=== PATIENT | male | born 1965 | race Caucasian/White ===

== ENCOUNTER 2016-11-18 17:51 | Emergency (ER) | payer MEDICAID, OTHER ==
--- NOTE | 2016-11-18 18:05 | EDM.PDOC ---
ED HPI GENERAL MEDICAL PROBLEM - General Chief Complaint: Upper Extremity Injury/Pain Stated Complaint: LEFT HAND INJURY Time Seen by Provider: 11/18/16 18:00 Source of Information: Reports: Patient History Limitations: Reports: No Limitations - History of Present Illness INITIAL COMMENTS - FREE TEXT/NARRATIVE: 51 yjo male had a metallic drill bit explode on him at work this morning. Is here now for evaluation of the resulting left hand injury. Thinks he may have metal in his hand from the broken drill bit. Last tetanus was one year ago. 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 (see below) (Wound was rinsed at the time of injury.) Review of Systems - Review of Systems Review Of Systems: See Below Constitutional: Reports: No Symptoms Musculoskeletal: Reports: Hand Pain (L thenar emminence) Skin: Reports: Wound (puncture) Neurological: Reports: No Symptoms ED EXAM, GENERAL - Physical Exam Exam: See Below Exam Limited By: No Limitations General Appearance: Alert, WD/WN, No Apparent Distress Ears: Normal External Exam, Normal Canal, Hearing Grossly Normal Ear Exam: Bilateral Ear: Auricle Normal, Canal Normal Nose: Normal Inspection, Normal Mucosa, No Blood Throat/Mouth: Normal Lips, Normal Voice, No Airway Compromise Head: Atraumatic, Normocephalic Neck: Normal Inspection Respiratory/Chest: No Respiratory Distress, No Accessory Muscle Use Neurological: Alert, Oriented, CN II-XII Intact, Normal Cognition, No Motor/ Sensory Deficits Psychiatric: Normal Affect, Normal Mood Skin Exam: Warm, Dry, Normal Color, No Rash, Other (Puncture wound to the L thenar emminence. No sign of bleeding or infection at this time. ) Lymphatic: No Adenopathy Course - Vital Signs Text/Narrative:: L hand X-ray-2 metallic FB's present. cephalexin 1000 mg po, [place] 1 po - Orders/Labs/Meds Orders: Active Orders 24 hr Category Date Time Status Hand Comp Min 3V Lt [CR] Stat Exams 11/18/16 18:04 Taken Acetaminophen/HYDROcodone [[place] 325-5 MG] Med 11/18/16 18:10 Once 1 tab PO ONETIME ONE Cephalexin [Keflex] Med 11/18/16 18:09 Once 1,000 mg PO ONETIME ONE Departure - Departure Time of Disposition: 18:30 Disposition: Home, Self-Care 01 Condition: Good Clinical Impression: Puncture wound of hand Qualifiers: Encounter type: initial encounter Foreign body presence: with foreign body Laterality: left Qualified Code(s): S61.442A - Puncture wound with foreign body of left hand, initial encounter - Discharge Information Forms: ED Department Discharge - My Orders Last 24 Hours: My Active Orders 11/18/16 18:04 Hand Comp Min 3V Lt [CR] Stat 11/18/16 18:09 Cephalexin [Keflex] 1,000 mg PO ONETIME ONE 11/18/16 18:10 Acetaminophen/HYDROcodone [[place] 325-5 MG] 1 tab PO ONETIME ONE - Assessment/Plan Last 24 Hours: My Active Orders 11/18/16 18:04 Hand Comp Min 3V Lt [CR] Stat 11/18/16 18:09 Cephalexin [Keflex] 1,000 mg PO ONETIME ONE 11/18/16 18:10 Acetaminophen/HYDROcodone [[place] 325-5 MG] 1 tab PO ONETIME ONE
[2016-11-18] MEDS ORDERED: Cephalexin 500 MG Cap PO ONE ×2 (18:09→18:35)
[2016-11-18] MEDS ORDERED: Acetaminophen/HYDROcodone 325-5 MG Tab PO ONE ×2 (18:10→18:34)
[2016-11-18 19:11] VITALS: BP 189/97
--- NOTE | 2016-11-19 09:31 | CR ---
INDICATION: Injury. LEFT HAND, 3 VIEWS: FINDINGS: No comparison imaging. There is apparent radiopaque foreign body that projects along the volar surface of the hand. This projects basically between the 2nd and 4th metacarpal regions. There are a couple of radiopaque foreign bodies that are present. I do not see an associated fracture or dislocation. 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 There is some additional osteoarthritis that is associated with the thumb. IMPRESSION: There is radiopaque foreign body that is identified which appears to project over the volar aspect of the hand, basically in the region of the 2nd through 4th metacarpals. There are a couple of radiopaque densities that are identified. There is some associated soft tissue swelling. No associated fracture or dislocation. [facility]
== END 2016-11-18 18:50 | disposition home or self-care (01) ==
LOC: FB.ED 17:51
DX: S61.442A Puncture wound with foreign body of left hand, initial encounter (principal); W31.89XA Contact with other specified machinery, initial encounter; Y93.89 Activity, other specified; Y99.0 Civilian activity done for income or pay
CPT/HCPCS: 73130; 99283; A9270

== ENCOUNTER 2016-12-04 20:28 | Emergency (ER) | payer SELFPAY ==
[~2016-12-04 20:28] MED LIST: Lidocaine 1% 20 ML MDV INFILT ONE
[2016-12-04] MEDS ORDERED: cefTRIAXone 1,000 MG VIAL IM ONE (20:47)
--- NOTE | 2016-12-04 20:48 | EDM.PDOC ---
ED HPI GENERAL MEDICAL PROBLEM - General Stated Complaint: ARM HEAD LAC Time Seen by Provider: 12/04/16 20:28 Source of Information: Reports: Patient, EMS History Limitations: Reports: Intoxication - History of Present Illness INITIAL COMMENTS - FREE TEXT/NARRATIVE: 51 y.o. w m came to the ed after her was drinking and fell onto his beer bottle and injured his r forearm. No active bleed, no loss of function, no FB r forearm. Pt is currently unemployed. No N/V/D or any other acute medical issue , no family was present Onset: Today Onset Date: 12/17/16 Onset Time: 18:52 Duration: Hour(s):, Intermittent Location: Reports: Upper Extremity, Right Quality: Reports: Burning, Dull Severity: Moderate Improves with: Reports: None Worsens with: Reports: Movement Context: Reports: Trauma Associated Symptoms: Reports: No Other Symptoms - Related Data Allergies Allergy/AdvReac Type Severity Reaction Status Date / Time No Known Allergies Allergy Verified 12/04/16 21:11 Home Meds: Home Meds Cephalexin [Keflex] 500 mg PO Q6HR #40 capsule 12/04/16 [Rx] Past Medical History - Past Health History Medical/Surgical History: Denies Medical/Surgical History Social & Family History - Tobacco Use Smoking Status *Q: Current Every Day Smoker Years of Tobacco use: 30 Packs/Tins Daily: 0.5 - Caffeine Use Caffeine Use: Reports: Coffee - Recreational Drug Use Recreational Drug Use: No Review of Systems - Review of Systems Review Of Systems: Unable To Obtain ED EXAM, GENERAL - Physical Exam Exam: See Below Exam Limited By: Intoxication General Appearance: Alert, No Apparent Distress, Thin Eye Exam: Bilateral Eye: Normal Inspection Ears: Normal External Exam Ear Exam: Bilateral Ear: Auricle Normal Nose: Normal Inspection, Normal Mucosa, No Blood Throat/Mouth: Normal Inspection, Normal Lips Head: Atraumatic, Normocephalic Neck: Normal Inspection, Supple, Non-Tender, Full Range of Motion Respiratory/Chest: No Respiratory Distress, Lungs Clear, Normal Breath Sounds Cardiovascular: Normal Peripheral Pulses, Regular Rate, Rhythm, No Edema Peripheral Pulses: 1+: Radial (L), Radial (R) GI/Abdominal: Normal Bowel Sounds, Soft, Non-Tender (Male) Exam: No Hernia Rectal (Males) Exam: Deferred Back Exam: Normal Inspection, Full Range of Motion Extremities: Other (LAC right forearm) Neurological: Alert, Oriented (occ.), CN II-XII Intact, Normal Gait Psychiatric: Normal Affect, Depressed Mood Skin Exam: Warm, Other (r forearm) Lymphatic: No Adenopathy ED TRAUMA EXTREMITY PROCEDURES - Laceration/Wound Repair Right Medial Arm Lac/Wound Length In cm: 6 Appearance: Subcutaneous, Mildly Contaminated Distal NVT: Neuro & Vascular Intact, No Tendon Injury Anesthetic Type: Local Local Anesthesia - Lidocaine (Xylocaine): 1% Plain Local Anesthetic Volume: 4cc Skin Prep: Chlorhexidine (Hibiciens), Providone-Iodine (Betadine) Saline Irrigation (cc's): 10 Exploration/Debridement/Repair: Wound Explored, in a Bloodless Field, Explored to Base Suture Size: 4-0 # of Sutures: 6 (interupted ) Repaired With: Other (ethilon ) Drain Placement: No Sterile Dressing Applied: Nurse Tetanus Status Addressed: Yes (UTD 2 years ago) Complications: No Course - Vital Signs Text/Narrative:: 51 y.o. w m came to the ed after her was drinking and fell onto his beer bottle and injured his r forearm. No active bleed, no loss of function, no FB r forearm. Pt is currently unemployed. No N/V/D or any other acute medical issue , no family was present PE: intoxicated WM with non bleeding LAC r forearm. BP 95/75 Procedure: Please see note above Labs: HGB and HKT Nl Imaging: Not indicated Impression: etoh abuse, LAC r forearm Tx: Wound repair, NS, Rocephin, Thiamin Reexam: Improved Plan: D/C home with instruction, with family Last Recorded V/S: Last Vital Signs Temp 37.0 C 12/04/16 20:28 Pulse 116 H 12/04/16 20:28 Resp 18 12/04/16 20:28 BP 99/71 12/04/16 20:28 Pulse Ox 99 12/04/16 20:28 - Orders/Labs/Meds Orders: Active Orders 24 hr Category Date Time Status Sodium Chloride 0.9% [Normal Saline] 1,000 ml Med 12/04/16 21:21 Active IV .BOLUS Medication Orders Sodium Chloride (Normal Saline) 1,000 mls @ 999 mls/hr IV .BOLUS ONE Stop: 12/04/16 22:21 Last Admin: 12/04/16 21:35 Dose: 999 mls/hr Labs: Laboratory Tests 12/04/16 12/04/16 Range/Units 21:25 21:25 WBC 9.5 (4.5-12.0) X10-3/uL RBC 4.62 (4.30-5.75) x10(6)uL Hgb 14.9 (11.5-15.5) g/dL Hct 44.5 (30.0-51.3) % MCV 96.3 H (80-96) fL MCH 32.2 (27.7-33.6) pg MCHC 33.5 (32.2-35.4) g/dL RDW 13.7 (11.5-15.5) % Plt Count 255 (125-369) X10(3)uL MPV 7.4 (7.4-10.4) fL Neut % (Auto) 72.1 (46-82) % Lymph % (Auto) 16.3 (13-37) % [place] % (Auto) 8.6 (4-12) % Eos % (Auto) 2 (1.0-5.0) % Baso % (Auto) 1 (0-2) % Neut # (Auto) 6.8 (1.6-8.3) # Lymph # (Auto) 1.6 (0.6-5.0) # [place] # (Auto) 0.8 (0.0-1.3) # Eos # (Auto) 0.2 (0.0-0.8) # Baso # (Auto) 0.1 (0.0-0.2) # Sodium 137 (135-145) mmol/L Potassium 4.2 (3.5-5.3) mmol/L Chloride 106 (100-110) mmol/L Carbon Dioxide 21 L (23-29) mmol/L BUN 25 H (5-20) mg/dL Creatinine 1.1 (0.6-1.3) mg/dL Est Cr Clr Drug Dosing 92.78 mL/min Estimated GFR (MDRD) > 60 (>60) BUN/Creatinine Ratio 22.7 H (9-20) Glucose 116 (80-116) mg/dL Calcium 8.6 (8.6-10.2) mg/dL Meds: Medications Generic Name Dose Route Start Last Admin Trade Name Freq PRN Reason Stop Dose Admin Sodium Chloride 1,000 mls @ 999 mls/hr 12/04/16 21:21 12/04/16 21:35 Normal Saline IV 12/04/16 22:21 999 mls/hr .BOLUS ONE Administration Discontinued Medications Generic Name Dose Route Start Last Admin Trade Name Mathieu PRN Reason Stop Dose Admin Ceftriaxone Sodium 1,000 mg 12/04/16 20:47 12/04/16 21:34 Rocephin IM 12/04/16 20:48 1,000 mg ONETIME ONE Administration Thiamine HCl 100 mg 12/04/16 21:20 12/04/16 21:35 Vitamin B-1 PO 12/04/16 21:21 100 mg ONETIME ONE Administration Departure - Departure Time of Disposition: 21:53 Disposition: Home, Self-Care 01 Condition: Good Clinical Impression: ETOH abuse, Laceration, Poor hygiene - Discharge Information Prescriptions: Cephalexin [Keflex] 500 mg PO Q6HR #40 capsule Instructions: Sutured Wound Care, [id number] Referrals: PCP,None [Primary Care Provider] - Forms: ED Department Discharge Additional Instructions: Wound check in 2-3 days at clinic, neosporine to wound twice daily, Keflex as recommended, suture removal in 10 days at clinic, please come back to the ER if your symptoms get worse acutely. - My Orders Last 24 Hours: My Active Orders 12/04/16 21:21 Sodium Chloride 0.9% [Normal Saline] 1,000 ml IV .BOLUS - Assessment/Plan Last 24 Hours: My Active Orders 12/04/16 21:21 Sodium Chloride 0.9% [Normal Saline] 1,000 ml IV .BOLUS
[2016-12-04] MEDS ORDERED: Thiamine 100 MG Tab PO ONE (21:20)
[2016-12-04] MEDS ORDERED: Sodium Chloride 0.9% 1,000 ML IV ONE (21:21)
[2016-12-05 03:36] VITALS: BP 112/64
== END 2016-12-04 22:30 | disposition home or self-care (01) ==
LOC: FB.ED 20:28
DX: S51.811A Laceration without foreign body of right forearm, initial encounter (principal); F10.10 Alcohol abuse, uncomplicated; F17.210 Nicotine dependence, cigarettes, uncomplicated; W01.198A Fall on same level from slipping, tripping and stumbling with subsequent striking against other object, initial encounter
CPT/HCPCS: 12002; 36415; 80048; 85025; 96360; 96372; 99284; A4217; A9270; J0696; J7040; 99283

== ENCOUNTER 2018-08-23 10:15 | Emergency (ER) | payer MEDICAID ==
[2018-08-23] MEDS ORDERED: Albuterol/Ipratropium 3.0-0.5 MG/3 ML Neb Soln NEB ONE (10:28)
--- NOTE | 2018-08-23 10:34 | EDM.PDOC ---
ED HPI GENERAL MEDICAL PROBLEM - General Chief Complaint: Respiratory Problem Stated Complaint: SOB Time Seen by Provider: 08/23/18 10:28 Source of Information: Reports: Patient History Limitations: Reports: No Limitations - History of Present Illness INITIAL COMMENTS - FREE TEXT/NARRATIVE: Presents with productive cough and SOB x 1 week. Complains of chest tightness. History of Asthma. Denies Fevers. No h/o CAD. Duration: Week(s): (1) - Related Data Allergies Allergy/AdvReac Type Severity Reaction Status Date / Time No Known Allergies Allergy Verified 08/23/18 11:26 Home Meds: Home Meds Albuterol [Proventil HFA] 2 puff INH Q4H PRN #1 inhaler 08/23/18 [Rx] Doxycycline Hyclate 100 mg PO BID #20 capsule 08/23/18 [Rx] Losartan Potassium [Cozaar] 50 mg PO DAILY #30 tablet 08/23/18 [Rx] Past Medical History - Past Health History Medical/Surgical History: Denies Medical/Surgical History Cardiovascular History: Reports: Hypertension. Denies: CAD Psychiatric History: Reports: Addiction, Psych Hospitalization(s) Other Psychiatric History: ETOH abuse, has been in tx x 7. - Infectious Disease History Infectious Disease History: Reports: Mumps - Past Surgical History GI Surgical History: Reports: Hernia Repair/Other Social & Family History - Family History Family Medical History: Noncontributory - Tobacco Use Smoking Status *Q: Current Every Day Smoker Tobacco Use Within Last Twelve Months: Cigarettes - Caffeine Use Caffeine Use: Reports: Coffee ED ROS GENERAL - Review of Systems Review Of Systems: ROS reveals no pertinent complaints other than HPI. ED EXAM, GENERAL - Physical Exam Exam: See Below Exam Limited By: No Limitations General Appearance: Alert, WD/WN, No Apparent Distress Nose: Normal Inspection Throat/Mouth: Normal Inspection, No Airway Compromise Head: Atraumatic, Normocephalic Neck: Full Range of Motion Respiratory/Chest: No Respiratory Distress, Decreased Breath Sounds, Wheezing Cardiovascular: Regular Rate, Rhythm, No Murmur Back Exam: Full Range of Motion Extremities: Normal Inspection, Normal Range of Motion, Non-Tender, No Pedal Edema Neurological: Alert, Normal Cognition, No Motor/Sensory Deficits Psychiatric: Normal Affect, Normal Mood Skin Exam: Warm, Dry, Intact EKG INTERPRETATION EKG Date: 08/23/18 Time: 11:06 Rhythm: NSR Rate (Beats/Min): 82 [place]: Normal P-Wave: Present QRS: Other (LVH) ST-T: Normal QT: Normal Course - Orders/Labs/Meds Orders: Active Orders 24 hr Category Date Time Status EKG Documentation Completion [RC] ASDIRECTED Care 08/23/18 10:30 Active RT Aerosol Therapy [RC] ASDIRECTED Care 08/23/18 10:28 Active CXR [Chest 2V] [CR] Stat Exams 08/23/18 10:30 Taken EKG 12 Lead [EK] Stat Ther 08/23/18 10:30 Ordered Labs: Laboratory Tests 08/23/18 08/23/18 08/23/18 Range/Units 10:17 10:17 10:17 WBC 6.6 (4.5-12.0) X10-3/uL RBC 4.67 (4.30-5.75) x10(6)uL Hgb 15.5 (13.5-17.8) g/dL Hct 44.9 (30.0-51.3) % MCV 96.3 H (80-96) fL MCH 33.2 (27.7-33.6) pg MCHC 34.4 (32.2-35.4) g/dL RDW 12.6 (11.5-15.5) % Plt Count 238 (125-369) X10(3)uL MPV 7.6 (7.4-10.4) fL Neut % (Auto) 75.8 (46-82) % Lymph % (Auto) 13.5 (13-37) % [place] % (Auto) 8.6 (4-12) % Eos % (Auto) 1 (1.0-5.0) % Baso % (Auto) 1 (0-2) % Neut # (Auto) 4.9 (1.6-8.3) # Lymph # (Auto) 0.9 (0.6-5.0) # [place] # (Auto) 0.6 (0.0-1.3) # Eos # (Auto) 0.1 (0.0-0.8) # Baso # (Auto) 0.1 (0.0-0.2) # Sodium 141 (135-145) mmol/L Potassium 4.7 (3.5-5.3) mmol/L Chloride 102 (100-110) mmol/L Carbon Dioxide 30 (21-32) mmol/L BUN 20 H (7-18) mg/dL Creatinine 1.0 (0.70-1.30) mg/dL Est Cr Clr Drug Dosing TNP Estimated GFR (MDRD) > 60 (>60) BUN/Creatinine Ratio 20.0 (9-20) Glucose 94 (80-116) mg/dL Calcium 8.6 (8.6-10.2) mg/dL Total Bilirubin 0.5 (0.1-1.3) mg/dL AST 29 H (5-25) IU/L ALT 43 H (12-36) U/L Alkaline Phosphatase 39 L (56-112) IU/L Troponin I < 0.017 L (<0.017-0.056) ng/mL Total Protein 7.3 (6.0-8.0) g/dL Albumin 4.1 (3.5-5.2) g/dL Globulin 3.2 g/dL Albumin/Globulin Ratio 1.3 Meds: Medications Discontinued Medications Generic Name Dose Route Start Last Admin Trade Name Freq PRN Reason Stop Dose Admin Albuterol/Ipratropium 3 ml 08/23/18 10:28 08/23/18 10:51 Duoneb 3.0-0.5 Mg/3 Ml NEB 08/23/18 10:29 3 ml ONETIME ONE Administration - Radiology Interpretation Free Text/Narrative:: CXR: No acute process. (ED provider interpretation) - Re-Assessments/Exams Free Text/Narrative Re-Assessment/Exam: 08/23/18 11:23 Patient feels much improved after DuoNeb, lungs clear, good aeration. Departure - Departure Time of Disposition: 11:23 Disposition: Home, Self-Care 01 Condition: Good Clinical Impression: Bronchitis Asthma exacerbation Qualifiers: Asthma severity: moderate Asthma persistence: unspecified Qualified Code(s): J45.901 - Unspecified asthma with (acute) exacerbation Hypertension Qualifiers: Hypertension type: essential hypertension Qualified Code(s): I10 - Essential ( primary) hypertension - Discharge Information *PRESCRIPTION DRUG MONITORING PROGRAM REVIEWED*: No *COPY OF PRESCRIPTION DRUG MONITORING REPORT IN PATIENT MEL: Not Applicable Prescriptions: Albuterol [Proventil HFA] 2 puff INH Q4H PRN #1 inhaler PRN Reason: Wheezing Doxycycline Hyclate 100 mg PO BID #20 capsule Losartan Potassium [Cozaar] 50 mg PO DAILY #30 tablet Instructions: Asthma, Adult, How to Use a Metered Dose Inhaler, Hypertension, [id number], Acute Bronchitis, Adult, [id number] Referrals: Ebony Guzman ACCESS DEVELOPER [Nurse Practitioner] - 2 Days Forms: ED Department Discharge Additional Instructions: Fill prescriptions for Albuterol, Doxycycline and Cozaar at [facility] and take as directed. Follow up with your primary physician in 2 days. Return to the ER if symptoms worsen. - My Orders Last 24 Hours: My Active Orders 08/23/18 10:28 RT Aerosol Therapy [RC] ASDIRECTED 08/23/18 10:30 EKG Documentation Completion [RC] ASDIRECTED CXR [Chest 2V] [CR] Stat EKG 12 Lead [EK] Stat - Assessment/Plan Last 24 Hours: My Active Orders 08/23/18 10:28 RT Aerosol Therapy [RC] ASDIRECTED 08/23/18 10:30 EKG Documentation Completion [RC] ASDIRECTED CXR [Chest 2V] [CR] Stat EKG 12 Lead [EK] Stat
--- NOTE | 2018-08-23 13:48 | CR ---
INDICATION: Short of breath. CHEST: Two PA views and a lateral view of the chest were obtained 08/23/18 - no comparisons. Slightly flattened diaphragm leaves with prominent AP diameter and hyperaeration suggest COPD and should be correlated clinically. An active infiltrate or effusion was not identified. The heart is normal in size and shape. Mediastinum was unremarkable. Moderate hypertrophic degenerative changes are noted in the lower middle thoracic spine. Likely old mild compression fractures are noted at two upper middle thoracic levels. IMPRESSION: No acute process - probable COPD. MTDD
[2018-08-23 21:31] VITALS: BP 167/98
== END 2018-08-23 12:00 | disposition home or self-care (01) ==
LOC: FB.ED 10:15
DX: J45.901 Unspecified asthma with (acute) exacerbation (principal); I10 Essential (primary) hypertension; F17.210 Nicotine dependence, cigarettes, uncomplicated; Z79.899 Other long term (current) drug therapy
CPT/HCPCS: 36415; 71046; 80053; 84484; 85025; 93005; 94640; 99285-25; J7620-GY

== ENCOUNTER 2021-05-01 09:32 | Observation (INO) | payer MEDICAID ==
--- NOTE | 2021-05-01 10:06 | EDM.PDOC ---
ED HPI GENERAL MEDICAL PROBLEM - General Chief Complaint: Abdominal Pain Stated Complaint: CONFUSION Time Seen by Provider: 05/01/21 09:58 Source of Information: Reports: Patient History Limitations: Reports: No Limitations - History of Present Illness INITIAL COMMENTS - FREE TEXT/NARRATIVE: 56-year-old male who presents to the emergency department after being sent here from the walk-in clinic complaining of right upper quadrant and right chest pain that has been ongoing for the past year. He reports that today the pain was worse. He reports that it feels like a cramping and spasm-type pain. It does not radiate. It doesn't really seem to be made better or worse with anything that he does. He reports the pain as an 8/10. He has had no nausea or vomiting. He was able to eat and drink normally today. No fevers or chills. No cough. No shortness of breath. The patient does seem very shaky and he does admit to alcohol use that is very evasive about answering any questions related to this. He is a relatively poor historian. He has dropped off here at [facility], [place] by his boss. The patient reports that he does not drive and apparently he was brought here by his boss from his work because the patient was complaining of worsening pain. There are no other associated signs or symptoms. There are no other modifying factors. Onset: Other (Ongoing pain for the past year. 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 (see below) (Nothing.) Right Lower Abdomen Pain Score (Numeric/FACES): 8 - Related Data Allergies Allergy/AdvReac Type Severity Reaction Status Date / Time No Known Allergies Allergy Verified 05/01/21 09:47 Home Meds: Home Meds Albuterol Sulfate [Proair Hfa] 8.5 gm IH Q4HR PRN 05/01/21 [History] Budesonide/Formoterol [Symbicort 160-4.5 MCG] 2 puff INH BID 05/01/21 [History] Gabapentin [Neurontin] 300 mg PO TID 05/01/21 [History] LORazepam [Ativan] 1 mg PO ASDIRECTED #11 tab 05/01/21 [Rx] Losartan/Hydrochlorothiazide [Losartan-HCTZ 100-25 MG] 1 each PO DAILY 05/01/21 [History] Magnesium Oxide 400 mg PO BID #5 tablet 05/01/21 [Rx] Metoprolol Succinate 50 mg PO DAILY 05/01/21 [History] Montelukast [Singulair] 10 mg PO BEDTIME 05/01/21 [History] Pantoprazole 40 mg PO BEDTIME 05/01/21 [History] atorvaSTATin [Lipitor] 20 mg PO BEDTIME 05/01/21 [History] Past Medical History Cardiovascular History: Reports: Hypertension Psychiatric History: Reports: Addiction, Psych Hospitalization(s) Other Psychiatric History: ETOH abuse, has been in tx x 7. 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 Denies: Throat Pain Respiratory: Denies: Shortness of Breath, Cough Cardiovascular: Reports: Chest Pain (Right lower chest pain and abdominal pain.). Denies: Palpitations GI/Abdominal: Reports: Abdominal Pain (Right upper quadrant abdominal pain). Denies: Nausea, Vomiting : Denies: Dysuria, Hematuria Musculoskeletal: Denies: Neck Pain, Back Pain Skin: Denies: Diaphoresis, Rash Neurological: Denies: Confusion, Dizziness Psychiatric: Reports: Anxiety Hematologic/Lymphatic: Denies: Easy Bleeding, Easy Bruising ED EXAM, GI/ABD - Physical Exam Exam: See Below Exam Limited By: No Limitations General Appearance: Alert, WD/WN, Moderate Distress, Other (Appears quite tremulous) Eyes: Bilateral: Normal Appearance, EOMI Ears: Normal External Exam, Hearing Grossly Normal Nose: Normal Inspection, Normal Mucosa, No Blood Throat/Mouth: Normal Oropharynx, Normal Voice, No Airway Compromise Head: Atraumatic, Normocephalic Neck: Normal Inspection, Supple, Non-Tender, Full Range of Motion, Carotid Bruit Respiratory/Chest: No Respiratory Distress, Lungs Clear, Normal Breath Sounds Cardiovascular: Normal Peripheral Pulses, No Edema, No Murmur, Tachycardia (Slight tachycardia) GI/Abdominal Exam: Normal Bowel Sounds, Soft, Non-Tender, No Distention, Hepatomegaly Back Exam: Normal Inspection, Full Range of Motion Extremities: Normal Inspection, Normal Range of Motion, Non-Tender, No Pedal Edema, Normal Capillary Refill Neurological: Alert, Oriented, CN II-XII Intact, Normal Cognition, No Neo r/Sensory Deficits Psychiatric: Anxious Skin Exam: Warm, Dry, Intact, Normal Color, No Rash #1 Interpretation EKG Date: 05/01/21 Time: 10:23 Rhythm: NSR Rate (Beats/Min): 103 [place]: Normal P-Wave: Enlarged (SH or enlargement) QRS: Other (LVH) ST-T: Other (Abnormal R-wave progression) QT: Normal Comparison: No Change (No change from an EKG performed on 08/23/2018.) Course - Vital Signs Last Recorded V/S: Last Vital Signs Temp 37.1 C 05/01/21 16:17 Pulse 112 H 05/01/21 16:17 Resp 21 H 05/01/21 16:17 BP 185/113 H 05/01/21 16:17 Pulse Ox 95 05/01/21 16:17 - Orders/Labs/Meds Orders: Active Orders 24 hr Category Date Time Status Abdomen Pelvis w Cont [CT] Stat Exams 05/01/21 11:07 Taken Chest 1V Frontal [CR] Stat Exams 05/01/21 10:18 Taken CORONAVIRUS COVID-19 KULWANT [MOLEC] Stat Lab 05/01/21 16:57 Ordered LORazepam [Ativan] Med 05/01/21 17:11 Once 1 mg IVPUSH ONETIME ONE Multivitamins [Tab-A-Clement] Med 05/02/21 16:20 Once 1 tab PO ONETIME ONE Sodium Chloride 0.9% [Saline Flush] Med 05/01/21 10:18 Active 10 ml FLUSH ASDIRECTED PRN Peripheral IV Insertion Adult [OM.PC] Routine Oth 05/01/21 10:18 Ordered EKG 12 Lead [EK] Routine Ther 05/01/21 10:18 Ordered Medication Orders Lorazepam (Lorazepam 2 Mg/Ml Sdv) 1 mg IVPUSH ONETIME ONE Stop: 05/01/21 17:12 Multivitamins/Minerals/Vitamin C (Multivitamin Tab) 1 tab PO ONETIME ONE Stop: 05/02/21 16:21 Sodium Chloride (Sodium Chloride 0.9% 10 Ml Syringe) 10 ml FLUSH ASDIRECTED PRN PRN Reason: Keep Vein Open Last Admin: 05/01/21 10:26 Dose: 10 ml Documented by: SALO Labs: Laboratory Tests 05/01/21 05/01/21 05/01/21 Range/Units 10:35 10:35 10:35 WBC 7.1 (3.2-10.1) x10-3/uL RBC 4.16 (3.90-5.90) x10(6)uL Hgb 13.8 (12.9-17.7) g/dL Hct 41.6 (38.3-50.1) % MCV 100.0 H (80.8-98.7) fL MCH 33.3 (27.0-33.3) pg MCHC 33.3 (28.7-35.3) g/dL RDW 14.1 (12.4-15.0) % Plt Count 214 (117-477) x10(3)uL MPV 7.2 (6.7-11.0) fL Neut % (Auto) 75.4 H (40.3-71.8) % Lymph % (Auto) 11.9 L (15.8-45.3) % [place] % (Auto) 11.3 (5.5-15.2) % Eos % (Auto) 0.6 (0.1-6.8) % Baso % (Auto) 0.8 (0.3-3.8) % Neut # (Auto) 5.4 (1.7-6.9) x10-3/uL Lymph # (Auto) 0.8 (0.5-4.5) x10-3/uL [place] # (Auto) 0.8 (0.0-1.2) x10-3/uL Eos # (Auto) 0.0 (0.0-0.6) x10-3/uL Baso # (Auto) 0.1 (0.0-0.3) x10-3/uL D-Dimer, Quantitative 0.48 (0.0-0.59) mg/LFEU Sodium 139 (135-145) mmol/L Potassium 4.4 (3.5-5.3) mmol/L Chloride 100 (100-110) mmol/L Carbon Dioxide 23 (21-32) mmol/L BUN 24 H (7-18) mg/dL Creatinine 1.0 (0.70-1.30) mg/dL Est Cr Clr Drug Dosing 96.39 mL/min Estimated GFR (MDRD) > 60 (>60) BUN/Creatinine Ratio 24.0 H (9-20) Glucose 81 (80-116) mg/dL Calcium 8.6 (8.6-10.2) mg/dL Magnesium 1.5 L (1.8-2.5) mg/dL Total Bilirubin 0.5 (0.1-1.3) mg/dL AST 155 H* D (5-25) IU/L ALT 147 H D (12-36) U/L Alkaline Phosphatase 52 L (56-112) IU/L Troponin I (4.0-60.3) pg/mL C-Reactive Protein (0.5-0.9) mg/dL Total Protein 7.9 (6.0-8.0) g/dL Albumin 4.3 (3.5-5.2) g/dL Globulin 3.6 g/dL Albumin/Globulin Ratio 1.2 Lipase (73-393) U/L Urine Color (YELLOW) Urine Appearance (CLEAR) Urine pH (5.0-6.5) Ur Specific [place] (1.010-1.025) Urine Protein (NEGATIVE) mg/dL Urine Glucose (UA) (NORMAL) mg/dL Urine Ketones (NEGATIVE) mg/dL Urine Occult Blood (NEGATIVE) Urine Nitrite (NEGATIVE) Urine Bilirubin (NEGATIVE) Urine Urobilinogen (NEGATIVE) mg/dL Ur Leukocyte Esterase (NEGATIVE) Urine RBC (0-5) Urine WBC (0-5) Ur Squamous Epith Cells (NS,R,O) Urine Bacteria (NS) Ethyl Alcohol (<0.03) % 05/01/21 05/01/21 Range/Units 10:35 11:40 WBC (3.2-10.1) x10-3/uL RBC (3.90-5.90) x10(6)uL Hgb (12.9-17.7) g/dL Hct (38.3-50.1) % MCV (80.8-98.7) fL MCH (27.0-33.3) pg MCHC (28.7-35.3) g/dL RDW (12.4-15.0) % Plt Count (117-477) x10(3)uL MPV (6.7-11.0) fL Neut % (Auto) (40.3-71.8) % Lymph % (Auto) (15.8-45.3) % [place] % (Auto) (5.5-15.2) % Eos % (Auto) (0.1-6.8) % Baso % (Auto) (0.3-3.8) % Neut # (Auto) (1.7-6.9) x10-3/uL Lymph # (Auto) (0.5-4.5) x10-3/uL [place] # (Auto) (0.0-1.2) x10-3/uL Eos # (Auto) (0.0-0.6) x10-3/uL Baso # (Auto) (0.0-0.3) x10-3/uL D-Dimer, Quantitative (0.0-0.59) mg/LFEU Sodium (135-145) mmol/L Potassium (3.5-5.3) mmol/L Chloride (100-110) mmol/L Carbon Dioxide (21-32) mmol/L BUN (7-18) mg/dL Creatinine (0.70-1.30) mg/dL Est Cr Clr Drug Dosing mL/min Estimated GFR (MDRD) (>60) BUN/Creatinine Ratio (9-20) Glucose (80-116) mg/dL Calcium (8.6-10.2) mg/dL Magnesium (1.8-2.5) mg/dL Total Bilirubin (0.1-1.3) mg/dL AST (5-25) IU/L ALT (12-36) U/L Alkaline Phosphatase (56-112) IU/L Troponin I 13.1 (4.0-60.3) pg/mL C-Reactive Protein < 0.2 L (0.5-0.9) mg/dL Total Protein (6.0-8.0) g/dL Albumin (3.5-5.2) g/dL Globulin g/dL Albumin/Globulin Ratio Lipase 231 (73-393) U/L Urine Color Yellow (YELLOW) Urine Appearance Clear (CLEAR) Urine pH 6.0 (5.0-6.5) Ur Specific [place] 1.025 (1.010-1.025) Urine Protein Negative (NEGATIVE) mg/dL Urine Glucose (UA) Normal (NORMAL) mg/dL Urine Ketones Negative (NEGATIVE) mg/dL Urine Occult Blood Negative (NEGATIVE) Urine Nitrite Negative (NEGATIVE) Urine Bilirubin Negative (NEGATIVE) Urine Urobilinogen Normal (NEGATIVE) mg/dL Ur Leukocyte Esterase Negative (NEGATIVE) Urine RBC 0-5 (0-5) Urine WBC 0-5 (0-5) Ur Squamous Epith Cells Rare (NS,R,O) Urine Bacteria Occasional H (NS) Ethyl Alcohol 0.07 H (<0.03) % Meds: Medications Generic Name Dose Route Start Last Admin Trade Name Freq PRN Reason Stop Dose Admin Lorazepam 1 mg 05/01/21 17:11 Lorazepam 2 Mg/Ml Sdv IVPUSH 05/01/21 17:12 ONETIME ONE Multivitamins/Minerals/Vitamin C 1 tab 05/02/21 16:20 Multivitamin Tab PO 05/02/21 16:21 ONETIME ONE Sodium Chloride 10 ml 05/01/21 10:18 05/01/21 10:26 Sodium Chloride 0.9% 10 Ml Syringe FLUSH 10 ml ASDIRECTED PRN Administration Keep Vein Open Discontinued Medications Generic Name Dose Route Start Last Admin Trade Name Freq PRN Reason Stop Dose Admin Sodium Chloride 1,000 mls @ 999 mls/hr 05/01/21 10:20 05/01/21 10:35 Normal Saline IV 05/01/21 11:20 999 mls/hr .BOLUS ONE Administration Magnesium Sulfate 2 gm/ Premix 50 mls @ 50 mls/hr 05/01/21 11:06 IV 05/01/21 12:05 ONETIME ONE Iopamidol 100 ml 05/01/21 11:57 12/01/21 12:06 Iopamidol 755 Mg/Ml 100 Ml Bottle IV 05/01/21 11:58 100 ml . DIRECTED ONE Administration Lorazepam 1 mg 05/01/21 11:06 05/01/21 11:48 Lorazepam 2 Mg/Ml Sdv IVPUSH 05/01/21 11:07 1 mg ONETIME ONE Administration Lorazepam 1 mg 05/01/21 16:18 05/01/21 16:23 Lorazepam 1 Mg Tab PO 05/01/21 16:19 1 mg ONETIME ONE Administration Magnesium Oxide 800 mg 05/01/21 16:19 05/01/21 16:24 Magnesium Oxide 400 Mg Tab PO 05/01/21 16:20 800 mg ONETIME ONE Administration - Radiology Interpretation Free Text/Narrative:: Chest x-ray showed scattered nodules. CT scan of the abdomen and pelvis showed hepatomegaly with diffuse fatty liver infiltration that was severe. So diffuse tree in but nodularity of the bilateral lower lobes of the lungs. This was per the [place] radiologist. - Re-Assessments/Exams Free Text/Narrative Re-Assessment/Exam: 05/01/21 11:15: White blood cell count is 7.1. Hemoglobin is 13.8. Platelet count is normal. Sodium is 139. Potassium is 4.4. Bicarbonate is 23. BUN is 24 and creatinine is 1.0. Magnesium is 1.5. D-dimer is normal. Glucose is 81. AST is 155. ALT is 147. Lipase is normal. CRP was negative. A troponin was normal. An EKG showed no change from previous EKG. Alcohol level was 70 mg/dL. Patient remains awake and alert. He is tremulous and is pulse 110 range. His blood pressure is also elevated. I will give the patient Ativan 1 mg IV. I will also order a CT scan of his abdomen and pelvis with IV contrast to further assess his abdominal pain. 05/01/21 12:10: Urinalysis was negative. The patient is awake and alert. He is still somewhat tachycardic. I am awaiting the CT scan of the abdomen and pelvis. The patient is receiving normal saline 1 L as a bolus IV. He will also be receiving magnesium 2 g IV. 05/01/21 16:00: The CT scan of the abdomen and pelvis showed hepatomegaly and fatty liver with some nodularity in his lung bases bilaterally. He is awake and alert. He remains somewhat tremulous. I will have the nursing staff repeat his vital signs. I did have a discussion with the patient about alcohol abuse and the effects of alcohol on him and his need to stop drinking alcohol. I am somewhat concerned about his level of tremulousness. He is awake and alert and is mentating normally. He really is having no hallucinations now. He was having some mild hallucinations this morning and felt very dizzy and weak prior to coming in. He does feel somewhat improved now. 05/01/21 16:20: The patient's repeat pulse was 112 and his blood pressure is 118/113. He certainly seems to be having some alcohol withdrawal but not any hallucinosis yet. I think she would benefit from admission with IV fluids and treatment of his alcohol withdrawal but he was resistant to this and wanted to try to go home. I will give him a tapering dose of Ativan but I have stressed to him that he should not drink anymore alcohol and take the Ativan. 05/01/21 16:30: Patient has reconsidered and would agree to admission. I will call and discuss this with the nursing dried yeast supervisor to see if a bed is available. In the meantime I have are given the patient magnesium oxide 800 mg orally, one multivitamin and Ativan 1 mg by mouth. 05/01/21 16:55: I have been informed that we do have a bed available and I discussed the patient's case with Dr. Proctor and he has agreed to admit the patient. I will place the patient on observation status and will place admission orders. Departure - Departure Time of Disposition: 17:14 Disposition: Refer to Observation Condition: Fair Clinical Impression: Alcohol abuse, Hypomagnesemia, Hypertension, uncontrolled Alcoholic hepatitis Qualifiers: Ascites presence: without ascites Qualified Code(s): K70.10 - Alcoholic hepatitis without ascites Alcohol withdrawal Qualifiers: Complication of substance-induced condition: with perceptual disturbance Qualified Code(s): F10.232 - Alcohol dependence with withdrawal with perceptual disturbance - Discharge Information Prescriptions: LORazepam [Ativan] 1 mg PO ASDIRECTED #11 tab Magnesium Oxide 400 mg PO BID #5 tablet Referrals: Ebony Guzman, COUNTER WAITRESS/WAITER [Primary Care Provider] - Forms: ED Department Discharge Sepsis Event Note (ED) - Evaluation Sepsis Screening Result: No Definite Risk - Focused Exam Vital Signs: Vital Signs Temp Pulse Resp BP Pulse Ox 05/01/21 16:17 37.1 C 112 H 21 H 185/113 H 95 05/01/21 13:46 36.9 C 116 H 20 164/105 H 95 05/01/21 09:48 37.0 C 110 H 18 149/97 H 95 - My Orders Last 24 Hours: My Active Orders 05/01/21 10:18 Chest 1V Frontal [CR] Stat Sodium Chloride 0.9% [Saline Flush] 10 ml FLUSH ASDIRECTED PRN Peripheral IV Insertion Adult [OM.PC] Routine EKG 12 Lead [EK] Routine 05/01/21 11:07 Abdomen Pelvis w Cont [CT] Stat 05/01/21 16:57 CORONAVIRUS COVID-19 KULWANT [MOLEC] Stat 05/01/21 17:11 LORazepam [Ativan] 1 mg IVPUSH ONETIME ONE 05/02/21 16:20 Multivitamins [Tab-A-Clement] 1 tab PO ONETIME ONE - Assessment/Plan Last 24 Hours: My Active Orders 05/01/21 10:18 Chest 1V Frontal [CR] Stat Sodium Chloride 0.9% [Saline Flush] 10 ml FLUSH ASDIRECTED PRN Peripheral IV Insertion Adult [OM.PC] Routine EKG 12 Lead [EK] Routine 05/01/21 11:07 Abdomen Pelvis w Cont [CT] Stat 05/01/21 16:57 CORONAVIRUS COVID-19 KULWANT [MOLEC] Stat 05/01/21 17:11 LORazepam [Ativan] 1 mg IVPUSH ONETIME ONE 05/02/21 16:20 Multivitamins [Tab-A-Clement] 1 tab PO ONETIME ONE
[2021-05-01] MEDS ORDERED: Sodium Chloride 0.9% 10 ML Syringe FLUSH PRN (10:18)
[2021-05-01] MEDS ORDERED: Sodium Chloride 0.9% 1,000 ML IV ONE (10:20)
[2021-05-01] MEDS ORDERED: LORazepam 2 MG/ML SDV IVPUSH ONE ×2 (11:06→17:11)
[2021-05-01] MEDS: Magnesium Sulfate/Water 2 GM in Premix Bag 1 BAG IV ONE ×2 (11:20→11:37)
[2021-05-01] MEDS ORDERED: Iopamidol 755 Mg/ML 100 ML Bottle IV ONE (11:57)
[2021-05-01] MEDS ORDERED: LORazepam 1 MG Tab PO ONE (16:18)
[2021-05-01] MEDS ORDERED: Magnesium Oxide 400 MG Tab PO ONE (16:19)
[2021-05-01] MEDS ORDERED: Sodium Chloride 0.9% 500 ML IV ONE (17:25)
[2021-05-01] MEDS ORDERED: Ondansetron 4 MG/2 ML SDV IV PRN (17:36)
[2021-05-01] MEDS ORDERED: Acetaminophen 325 MG Tab PO PRN (17:36)
[2021-05-01] MEDS ORDERED: LORazepam 2 MG/ML SDV IV SCH (17:45)
[2021-05-01] MEDS ORDERED: Enoxaparin 40 MG/0.4 ML Syringe SUBCUT SCH (18:00)
[2021-05-01] MEDS: Thiamine 100 MG Tab PO SCH (18:08)
[2021-05-01] MEDS: Folic Acid 1 MG Tab PO SCH (18:08)
[2021-05-01] MEDS: Pantoprazole 40 MG Vial IV SCH (18:08)
[2021-05-01] MEDS ORDERED: Metoprolol Tartrate 25 MG Tab PO ONE (22:55)
[2021-05-01] MEDS: Sodium Chloride 0.9% 1,000 ML IV SCH (23:12)
[2021-05-02] MEDS ORDERED: LORazepam 1 MG Tab PO PRN (06:33)
[2021-05-02] MEDS: Sodium Chloride 0.9% 1,000 ML IV SCH (06:47)
[2021-05-02 08:21] VITALS: PULSE 77
[2021-05-02] MEDS: Folic Acid 1 MG Tab PO SCH (08:35)
[2021-05-02] MEDS: Thiamine 100 MG Tab PO SCH (08:36)
[2021-05-02] MEDS: Pantoprazole 40 MG Vial IV SCH (08:36)
[2021-05-02] MEDS ORDERED: Hydrochlorothiazide 25 MG Tab PO SCH (09:00)
[2021-05-02] MEDS ORDERED: Metoprolol Succinate 50 MG Tab.ER PO SCH (09:00)
[2021-05-02] MEDS ORDERED: Multivitamin Tab PO SCH (09:00)
[2021-05-02] MEDS ORDERED: Losartan 100 MG Tab PO SCH (09:00)
--- NOTE | 2021-05-02 09:17 | PCM.HP.2 ---
H&P History of Present Illness - General Date of Service: 05/02/21 Admit Problem/Dx: Admission Diagnosis/Problem Admission Diagnosis/Problem Alcohol withdrawal syndrome Source of Information: Patient History Limitations: Reports: No Limitations - History of Present Illness Initial Comments - Free Text/Narative: Daryl is a 56-year-old male admitted yesterday for right upper quadrant abdominal pain,that has been going on for at least a year. He was also noted to be in mild alcohol withdrawal syndrome. Blood pressure was in the 180s systolic. He complains some dizziness, and gait disturbance that has happened on and off last few weeks. Endorsed to drinking alcohol, and feeling depressed . It's my understanding that he has been to inpatient treatment for several times in the past but is not particularly interested this time Right Lower Abdomen Pain Score (Numeric/FACES): 3 - Related Data Allergies/Adverse Reactions: Allergies Allergy/AdvReac Type Severity Reaction Status Date / Time No Known Allergies Allergy Verified 05/01/21 09:47 Home Medications: Home Meds Albuterol Sulfate [Proair Hfa] 8.5 gm IH Q4HR PRN 05/01/21 [History] Budesonide/Formoterol [Symbicort 160-4.5 MCG] 2 puff INH BID 05/01/21 [History] Gabapentin [Neurontin] 300 mg PO TID 05/01/21 [History] LORazepam [Ativan] 1 mg PO ASDIRECTED #11 tab 05/01/21 [Rx] Losartan/Hydrochlorothiazide [Losartan-HCTZ 100-25 MG] 1 each PO DAILY 05/01/21 [History] Magnesium Oxide 400 mg PO BID #5 tablet 05/01/21 [Rx] Metoprolol Succinate 50 mg PO DAILY 05/01/21 [History] Montelukast [Singulair] 10 mg PO BEDTIME 05/01/21 [History] Pantoprazole 40 mg PO BEDTIME 05/01/21 [History] atorvaSTATin [Lipitor] 20 mg PO BEDTIME 05/01/21 [History] Past Medical History - Past Health History Medical/Surgical History: Denies Medical/Surgical History Cardiovascular History: Reports: Hypertension Respiratory History: Reports: Pneumothorax Musculoskeletal History: Reports: Fibromyalgia Psychiatric History: Reports: Addiction, Psych Hospitalization(s) Other Psychiatric History: ETOH abuse, has been in tx x 7. - Infectious Disease History Infectious Disease History: Reports: Mumps - Past Surgical History Respiratory Surgical History: Reports: Other (See Below) GI Surgical History: Reports: Hernia Repair/Other Social & Family History - Family History Family Medical History: No Pertinent Family History - Tobacco Use Tobacco Use Status *Q: Former Tobacco User Used Tobacco, but Quit: Yes Month/Year Tobacco Last Used: 04-01-21 Tobacco Use Comment: quite 1 month ago Second Hand Smoke Exposure: No - Caffeine Use Caffeine Use: Reports: Soda Other Caffeine Use: daily - Alcohol Use Days Per Week of Alcohol Use: 7 Number of Drinks Per Day: 2 Total Drinks Per Week: 14 Date of Last Drink: 04/29/21 Time of Last Drink: 18:00 - Recreational Drug Use Recreational Drug Use: No - Living Situation & Occupation 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 Exam - Exam Exam: See Below - Vital Signs Vital Signs: Last Vital Signs Temp 99.1 F 05/02/21 08:16 Pulse 77 05/02/21 08:16 Resp 16 05/02/21 08:16 BP 162/108 H 05/02/21 08:16 Pulse Ox 95 05/02/21 08:16 Weight: 89.414 kg - Exam General: Alert, Oriented, 4 HEENT: PERRLA, Hearing Intact, Mucosa Moist & Wilcox, Nares Patent, Normal Nasal Septum, Posterior Pharynx Clear, Conjunctiva Clear, EOMI, EACs Clear, TMs Clear Neck: Supple, Trachea Midline, 2 Lungs: Clear to Auscultation, Normal Respiratory Effort Cardiovascular: Regular Rate, Regular Rhythm GI/Abdominal Exam: Normal Bowel Sounds, Soft, Non-Tender, No Organomegaly, No Distention, No Abnormal Bruit, No Mass, Pelvis Stable (Male) Exam: Deferred Rectal (Males) Exam: Deferred Back Exam: Normal Inspection, Full Range of Motion, NT Extremities: Normal Inspection, Normal Range of Motion, Non-Tender, No Pedal Edema, Normal Capillary Refill Skin: Warm, Dry, Intact Neurological: Cranial Nerves Intact, Reflexes Equal Bilateral Neuro Extensive - Mental Status: Alert Neuro Extensive - Motor, Sensory, Reflexes: CN II-XII Intact, Normal Gait, Normal Reflexes Psychiatric: Alert, Normal Affect, Normal Mood - Patient Data Lab Results Last 24 hrs: Laboratory Results - last 24 hr 05/01/21 05/01/21 05/01/21 Range/Units 10:35 10:35 10:35 WBC 7.1 (3.2-10.1) x10-3/uL RBC 4.16 (3.90-5.90) x10(6)uL Hgb 13.8 (12.9-17.7) g/dL Hct 41.6 (38.3-50.1) % MCV 100.0 H (80.8-98.7) fL MCH 33.3 (27.0-33.3) pg MCHC 33.3 (28.7-35.3) g/dL RDW 14.1 (12.4-15.0) % Plt Count 214 (117-477) x10(3)uL MPV 7.2 (6.7-11.0) fL Neut % (Auto) 75.4 H (40.3-71.8) % Lymph % (Auto) 11.9 L (15.8-45.3) % Lares % (Auto) 11.3 (5.5-15.2) % Eos % (Auto) 0.6 (0.1-6.8) % Baso % (Auto) 0.8 (0.3-3.8) % Neut # (Auto) 5.4 (1.7-6.9) x10-3/uL Lymph # (Auto) 0.8 (0.5-4.5) x10-3/uL Lares # (Auto) 0.8 (0.0-1.2) x10-3/uL Eos # (Auto) 0.0 (0.0-0.6) x10-3/uL Baso # (Auto) 0.1 (0.0-0.3) x10-3/uL D-Dimer, Quantitative 0.48 (0.0-0.59) mg/LFEU Sodium 139 (135-145) mmol/L Potassium 4.4 (3.5-5.3) mmol/L Chloride 100 (100-110) mmol/L Carbon Dioxide 23 (21-32) mmol/L BUN 24 H (7-18) mg/dL Creatinine 1.0 (0.70-1.30) mg/dL Est Cr Clr Drug Dosing 96.39 mL/min Estimated GFR (MDRD) > 60 (>60) BUN/Creatinine Ratio 24.0 H (9-20) Glucose 81 (80-116) mg/dL Calcium 8.6 (8.6-10.2) mg/dL Magnesium 1.5 L (1.8-2.5) mg/dL Total Bilirubin 0.5 (0.1-1.3) mg/dL AST 155 H* D (5-25) IU/L ALT 147 H D (12-36) U/L Alkaline Phosphatase 52 L (56-112) IU/L Troponin I (4.0-60.3) pg/mL C-Reactive Protein (0.5-0.9) mg/dL Total Protein 7.9 (6.0-8.0) g/dL Albumin 4.3 (3.5-5.2) g/dL Globulin 3.6 g/dL Albumin/Globulin Ratio 1.2 Lipase (73-393) U/L Urine Color (YELLOW) Urine Appearance (CLEAR) Urine pH (5.0-6.5) Ur Specific [place] (1.010-1.025) Urine Protein (NEGATIVE) mg/dL Urine Glucose (UA) (NORMAL) mg/dL Urine Ketones (NEGATIVE) mg/dL Urine Occult Blood (NEGATIVE) Urine Nitrite (NEGATIVE) Urine Bilirubin (NEGATIVE) Urine Urobilinogen (NEGATIVE) mg/dL Ur Leukocyte Esterase (NEGATIVE) Urine RBC (0-5) Urine WBC (0-5) Ur Squamous Epith Cells (NS,R,O) Urine Bacteria (NS) Ethyl Alcohol (<0.03) % SARS-CoV-2 RNA (KULWANT) (NEGATIVE) 05/01/21 05/01/21 05/01/21 Range/Units 10:35 11:40 17:00 WBC (3.2-10.1) x10-3/uL RBC (3.90-5.90) x10(6)uL Hgb (12.9-17.7) g/dL Hct (38.3-50.1) % MCV (80.8-98.7) fL MCH (27.0-33.3) pg MCHC (28.7-35.3) g/dL RDW (12.4-15.0) % Plt Count (117-477) x10(3)uL MPV (6.7-11.0) fL Neut % (Auto) (40.3-71.8) % Lymph % (Auto) (15.8-45.3) % Lares % (Auto) (5.5-15.2) % Eos % (Auto) (0.1-6.8) % Baso % (Auto) (0.3-3.8) % Neut # (Auto) (1.7-6.9) x10-3/uL Lymph # (Auto) (0.5-4.5) x10-3/uL Lares # (Auto) (0.0-1.2) x10-3/uL Eos # (Auto) (0.0-0.6) x10-3/uL Baso # (Auto) (0.0-0.3) x10-3/uL D-Dimer, Quantitative (0.0-0.59) mg/LFEU Sodium (135-145) mmol/L Potassium (3.5-5.3) mmol/L Chloride (100-110) mmol/L Carbon Dioxide (21-32) mmol/L BUN (7-18) mg/dL Creatinine (0.70-1.30) mg/dL Est Cr Clr Drug Dosing mL/min Estimated GFR (MDRD) (>60) BUN/Creatinine Ratio (9-20) Glucose (80-116) mg/dL Calcium (8.6-10.2) mg/dL Magnesium (1.8-2.5) mg/dL Total Bilirubin (0.1-1.3) mg/dL AST (5-25) IU/L ALT (12-36) U/L Alkaline Phosphatase (56-112) IU/L Troponin I 13.1 (4.0-60.3) pg/mL C-Reactive Protein < 0.2 L (0.5-0.9) mg/dL Total Protein (6.0-8.0) g/dL Albumin (3.5-5.2) g/dL Globulin g/dL Albumin/Globulin Ratio Lipase 231 (73-393) U/L Urine Color Yellow (YELLOW) Urine Appearance Clear (CLEAR) Urine pH 6.0 (5.0-6.5) Ur Specific [place] 1.025 (1.010-1.025) Urine Protein Negative (NEGATIVE) mg/dL Urine Glucose (UA) Normal (NORMAL) mg/dL Urine Ketones Negative (NEGATIVE) mg/dL Urine Occult Blood Negative (NEGATIVE) Urine Nitrite Negative (NEGATIVE) Urine Bilirubin Negative (NEGATIVE) Urine Urobilinogen Normal (NEGATIVE) mg/dL Ur Leukocyte Esterase Negative (NEGATIVE) Urine RBC 0-5 (0-5) Urine WBC 0-5 (0-5) Ur Squamous Epith Cells Rare (NS,R,O) Urine Bacteria Occasional H (NS) Ethyl Alcohol 0.07 H (<0.03) % SARS-CoV-2 RNA (KULWANT) Negative (NEGATIVE) 05/02/21 05/02/21 Range/Units 06:13 06:13 WBC 4.9 (3.2-10.1) x10-3/uL RBC 3.62 L (3.90-5.90) x10(6)uL Hgb 12.1 L (12.9-17.7) g/dL Hct 36.4 L (38.3-50.1) % MCV 100.6 H (80.8-98.7) fL MCH 33.4 H (27.0-33.3) pg MCHC 33.2 (28.7-35.3) g/dL RDW 13.6 (12.4-15.0) % Plt Count 166 (117-477) x10(3)uL MPV 7.3 (6.7-11.0) fL Neut % (Auto) 68.9 (40.3-71.8) % Lymph % (Auto) 16.3 (15.8-45.3) % Lares % (Auto) 12.4 (5.5-15.2) % Eos % (Auto) 1.5 (0.1-6.8) % Baso % (Auto) 0.9 (0.3-3.8) % Neut # (Auto) 3.4 (1.7-6.9) x10-3/uL Lymph # (Auto) 0.8 (0.5-4.5) x10-3/uL Lares # (Auto) 0.6 (0.0-1.2) x10-3/uL Eos # (Auto) 0.1 (0.0-0.6) x10-3/uL Baso # (Auto) 0.0 (0.0-0.3) x10-3/uL D-Dimer, Quantitative (0.0-0.59) mg/LFEU Sodium 136 (135-145) mmol/L Potassium 4.0 (3.5-5.3) mmol/L Chloride 102 (100-110) mmol/L Carbon Dioxide 27 (21-32) mmol/L BUN 23 H (7-18) mg/dL Creatinine 1.0 (0.70-1.30) mg/dL Est Cr Clr Drug Dosing 94.33 mL/min Estimated GFR (MDRD) > 60 (>60) BUN/Creatinine Ratio 23.0 H (9-20) Glucose 127 H (80-116) mg/dL Calcium 7.5 L (8.6-10.2) mg/dL Magnesium 2.0 (1.8-2.5) mg/dL Total Bilirubin (0.1-1.3) mg/dL AST (5-25) IU/L ALT (12-36) U/L Alkaline Phosphatase (56-112) IU/L Troponin I (4.0-60.3) pg/mL C-Reactive Protein (0.5-0.9) mg/dL Total Protein (6.0-8.0) g/dL Albumin (3.5-5.2) g/dL Globulin g/dL Albumin/Globulin Ratio Lipase (73-393) U/L Urine Color (YELLOW) Urine Appearance (CLEAR) Urine pH (5.0-6.5) Ur Specific [place] (1.010-1.025) Urine Protein (NEGATIVE) mg/dL Urine Glucose (UA) (NORMAL) mg/dL Urine Ketones (NEGATIVE) mg/dL Urine Occult Blood (NEGATIVE) Urine Nitrite (NEGATIVE) Urine Bilirubin (NEGATIVE) Urine Urobilinogen (NEGATIVE) mg/dL Ur Leukocyte Esterase (NEGATIVE) Urine RBC (0-5) Urine WBC (0-5) Ur Squamous Epith Cells (NS,R,O) Urine Bacteria (NS) Ethyl Alcohol (<0.03) % SARS-CoV-2 RNA (KULWANT) (NEGATIVE) Result Diagrams: 05/02/21 06:13 05/02/21 06:13 Sepsis Event Note - Evaluation Sepsis Screening Result: No Definite Risk - Focused Exam Vital Signs: Vital Signs Temp Pulse Pulse Resp BP BP BP 05/02/21 08:16 99.1 F 77 16 162/108 H 05/02/21 03:47 97.6 F 86 16 05/01/21 23:30 98.4 F 88 16 154/94 H 05/01/21 23:10 99 162/104 H Pulse Ox 05/02/21 08:16 95 05/02/21 03:47 95 05/01/21 23:30 95 05/01/21 23:10 - Problem List (1) Alcohol withdrawal SNOMED Code(s): 109902555 ICD Code: F10.239 - ALCOHOL DEPENDENCE WITH WITHDRAWAL, UNSPECIFIED Status: Acute Current Visit: Yes Qualifiers: Complication of substance-induced condition: with perceptual disturbance Qualified Code(s): F10.232 - Alcohol dependence with withdrawal with perceptual disturbance (2) MDD (major depressive disorder) SNOMED Code(s): 039941322 ICD Code: F32.9 - MAJOR DEPRESSIVE DISORDER, SINGLE EPISODE, UNSPECIFIED Status: Acute Current Visit: Yes Qualifiers: Major depression recurrence: recurrent (3) Alcoholic hepatitis SNOMED Code(s): 725858037 ICD Code: K70.10 - ALCOHOLIC HEPATITIS WITHOUT ASCITES Status: Acute Current Visit: Yes Qualifiers: Ascites presence: without ascites Qualified Code(s): K70.10 - Alcoholic h epatitis without ascites (4) ETOH abuse SNOMED Code(s): 86721363 ICD Code: F10.10 - ALCOHOL ABUSE, UNCOMPLICATED Status: Acute Current Visit: Yes (5) Hypertension, uncontrolled SNOMED Code(s): 27301746, 55900721 ICD Code: I10 - ESSENTIAL (PRIMARY) HYPERTENSION Status: Acute Current Visit: Yes Problem List Initiated/Reviewed/Updated: Yes Orders Last 24hrs: Active Orders 24 hr Category Date Time Status Admission Status [Patient Status] [ADT] Routine ADT 05/01/21 17:14 Active Cardiac Monitoring [RC] 08,16,00 Care 05/01/21 17:14 Active Height and Weight [RC] UPON Care 05/01/21 17:36 Active Intake and Output [RC] 06,14,22 Care 05/01/21 17:37 Active Notify Provider [RC] PRN Care 05/01/21 17:37 Active Oxygen Therapy [RC] PRN Care 05/01/21 17:37 Active Pulse Oximetry [RC] PRN Care 05/01/21 17:37 Active Up With Assistance [RC] ASDIRECTED Care 05/01/21 17:36 Active VTE/DVT Education [RC] Per Unit Routine Care 05/01/21 17:37 Active Vital Signs [RC] 08,12,16,20,00,04 Care 05/01/21 17:37 Active Heart Healthy Diet [DIET] Diet 05/01/21 Dinner Active Abdomen Pelvis w Cont [CT] Stat Exams 05/01/21 11:07 Taken Chest 1V Frontal [CR] Stat Exams 05/01/21 10:18 Taken Acetaminophen [TylenoL] Med 05/01/21 17:36 Active 650 mg PO Q4H PRN Enoxaparin [Lovenox] Med 05/01/21 18:00 Active 40 mg SUBCUT Q24H Folic Acid Med 05/01/21 17:45 Active 1 mg PO DAILY LORazepam [Ativan] Med 05/02/21 06:33 Active 1 mg PO Q4H PRN LORazepam [Ativan] Med 05/01/21 17:45 Active See Protocol IV ASDIRECTED Losartan/Hydrochlorothiazide [Losartan-HCTZ 100-25 MG] Med 05/03/21 09:00 Ordered 1 each PO DAILY Metoprolol Succinate [Toprol XL] Med 05/03/21 09:00 Ordered 50 mg PO DAILY Multivitamins [Tab-A-Clement] Med 05/02/21 09:00 Active 1 tab PO DAILY Multivitamins [Tab-A-Clement] Med 05/02/21 16:20 Once 1 tab PO ONETIME ONE Ondansetron [Zofran] Med 05/01/21 17:36 Active 4 mg IV Q6H PRN Pantoprazole [ProTONIX IV] Med 05/01/21 17:45 Active 40 mg IV DAILY Sodium Chloride 0.9% [Normal Saline] 1,000 ml Med 05/01/21 17:30 Active IV ASDIRECTED Sodium Chloride 0.9% [Saline Flush] Med 05/01/21 10:18 Active 10 ml FLUSH ASDIRECTED PRN Thiamine [Vitamin B-1] Med 05/01/21 17:45 Active 100 mg PO DAILY Peripheral IV Insertion Adult [OM.PC] Routine Oth 05/01/21 10:18 Ordered Resuscitation Status Routine Resus Stat 05/01/21 17:36 Ordered EKG 12 Lead [EK] Routine Ther 05/01/21 10:18 Ordered Medication Orders Acetaminophen (Acetaminophen 325 Mg Tab) 650 mg PO Q4H PRN PRN Reason: Pain (Mild 1-3)/fever Last Admin: 05/02/21 05:11 Dose: 650 mg Documented by: RANULFO Enoxaparin Sodium (Enoxaparin 40 Mg/0.4 Ml Syringe) 40 mg SUBCUT Q24H [facility] Last Admin: 05/01/21 20:54 Dose: 40 mg Documented by: RANULFO Folic Acid (Folic Acid 1 Mg Tab) 1 mg PO DAILY [facility] Last Admin: 05/02/21 08:35 Dose: 1 mg Documented by: Admin: 05/01/21 18:08 Dose: 1 mg Documented by: SALO Sodium Chloride (Normal Saline) 1,000 mls @ 125 mls/hr IV ASDIRECTED [facility] Last Admin: 05/02/21 06:47 Dose: 125 mls/hr Documented by: Infusion: 05/02/21 06:47 Dose: 125 mls/hr Documented by: Admin: 05/01/21 23:12 Dose: 125 mls/hr Documented by: RANULFO Lorazepam (Lorazepam 2 Mg/Ml Sdv) 0 mg IV ASDIRECTED [facility]; Protocol Lorazepam (Lorazepam 1 Mg Tab) 1 mg PO Q4H PRN PRN Reason: Withdrawal Symptoms Last Admin: 05/02/21 06:46 Dose: 1 mg Documented by: RANULFO Multivitamins/Minerals/Vitamin C (Multivitamin Tab) 1 tab PO ONETIME ONE Stop: 05/02/21 16:21 Multivitamins/Minerals/Vitamin C (Multivitamin Tab) 1 tab PO DAILY [facility] Last Admin: 05/02/21 08:36 Dose: 1 tab Documented by: WATSON Ondansetron HCl (Ondansetron 4 Mg/2 Ml Sdv) 4 mg IV Q6H PRN PRN Reason: Nausea/Vomiting Pantoprazole Sodium (Pantoprazole 40 Mg Vial) 40 mg IV DAILY [facility] Last Admin: 05/02/21 08:36 Dose: 40 mg Documented by: Admin: 05/01/21 18:08 Dose: 40 mg Documented by: SALO Sodium Chloride (Sodium Chloride 0.9% 10 Ml Syringe) 10 ml FLUSH ASDIRECTED PRN PRN Reason: Keep Vein Open Last Admin: 05/01/21 10:26 Dose: 10 ml Documented by: SALO Thiamine HCl (Thiamine 100 Mg Tab) 100 mg PO DAILY [facility] Last Admin: 05/02/21 08:36 Dose: 100 mg Documented by: Admin: 05/01/21 18:08 Dose: 100 mg Documented by: SALO Assessment/Plan Comment:: Daryl did well overnight. He has no complaints this morning,denies chest pain. Or shortness of breath. The right upper quadrant pain is musculoskeletal in nature -since it is only with any movement. I will give him his blood pressure medications this morning and discharge him home. He is to follow-up with his PCP next week.
[2021-05-02 09:48] VITALS: BP 162/104
--- NOTE | 2021-05-02 12:04 | DISCH ---
DISCHARGE DATE: 05/02/2021 REASON FOR ADMISSION: 1. Alcohol withdrawal syndrome. 2. Right upper quadrant abdominal pain. 3. Alcoholic hepatitis. 4. Alcohol abuse. 5. Depression. 6. Hypertension. BRIEF HISTORY: A 56-year-old admitted with high blood pressure and tremors and pain in the right upper quadrant. He had a CT abdomen and pelvis that was negative. He was treated with IV fluids, thiamine, and is feeling ready to go home this morning. I will discharge him home on his regular home medications. Advised to see Ebony Guzman CNP at [facility] on Thursday. More than 35 minutes was used in discharge. /[id number] SHIKHA/[place]OR[place]
[2021-05-02] MEDS ORDERED: Multivitamin Tab PO ONE (16:20)
== END 2021-05-02 14:10 | disposition home or self-care (01) ==
LOC: FB.ED 09:32 → FB.MS 17:14
PROVIDERS: ADMIT Family Medicine; ATTEND Family Medicine
DX: F10.139 Alcohol abuse with withdrawal, unspecified (principal); R10.11 Right upper quadrant pain; I10 Essential (primary) hypertension; R25.1 Tremor, unspecified; K70.10 Alcoholic hepatitis without ascites; F32.A Depression, unspecified; F32.9 Major depressive disorder, single episode, unspecified; Z79.899 Other long term (current) drug therapy; Z87.891 Personal history of nicotine dependence; Z20.822 Contact with and (suspected) exposure to COVID-19
CPT/HCPCS: 36415; 71045; 74177; 80048; 80053; 80307; 81001; 83690; 83735; 84484; 85025; 85379; 86140; 87635; 93005; 96365; 96375; 99285; A9270; C9113; J1650; J2060; J3475; J7030; J7040; Q9967; U0002

== ENCOUNTER 2023-03-08 09:42 | Emergency (ER) | payer MEDICAID ==
[2023-03-08] MEDS ORDERED: Sodium Chloride 0.9% 10 ML Syringe FLUSH PRN (09:58)
[2023-03-08 10:14] LABS: BASOPHILS PERCENT AUTO 0.3 % (0.3-3.8); EOSINOPHILS ABSOLUTE AUTO 0.9 x10-3/uL (0.0-0.6); EOSINOPHILS PERCENT AUTO 6.3 % (0.1-6.8); HEMOGLOBIN 12.6 g/dL (12.9-17.7); LYMPHOCYTES ABSOLUTE AUTO 0.7 x10-3/uL (0.5-4.5); MEAN CORPUSCULAR HEMOGLOBIN 31.2 pg (27.0-33.3); MEAN CORPUSCULAR HGB CONC 33.1 g/dL (28.7-35.3); MEAN CORPUSCULAR VOLUME 94.1 fL (80.8-98.7); MEAN PLATELET VOLUME 7.5 fL (6.7-11.0); MONOCYTES ABSOLUTE AUTO 0.5 x10-3/uL (0.0-1.2); MONOCYTES PERCENT AUTO 3.4 % (5.5-15.2); NEUTROPHILS ABSOLUTE AUTO 12.1 x10-3/uL (1.7-6.9); PLATELET COUNT,PLT 253 x10(3)uL (117-477); RED BLOOD CELL COUNT 4.04 x10(6)uL (3.90-5.90); RED CELL DISTRIBUTION WIDTH 18.4 % (12.4-15.0); WHITE BLOOD CELL COUNT,WBC 14.2 x10-3/uL (3.2-10.1)
[2023-03-08 10:20] LABS: BLOOD UREA NITROGEN,BUN 23 mg/dL (7-18); BUN/CREATININE RATIO 20.9 (9-20); CALCIUM 8.2 mg/dL (8.6-10.2); CARBON DIOXIDE,CO2 16 mmol/L (21-32); CHLORIDE,CL 102 mmol/L (100-110); CREATININE 1.1 mg/dL (0.70-1.30); ESTIMATED GFR 79 mL/min (>60); GLUCOSE RANDOM 194 mg/dL (80-116); POTASSIUM,K 3.5 mmol/L (3.5-5.3); SODIUM,NA 140 mmol/L (135-145)
[2023-03-08] MEDS ORDERED: LORazepam 2 MG/ML SDV IVPUSH ONE (10:24)
[2023-03-08] MEDS ORDERED: Diltiazem 25 MG/5 ML SDV IVPUSH ONE (10:24)
[2023-03-08 10:26] LABS: ALANINE AMINOTRANSFERASE,ALT 38 U/L (12-36); ALBUMIN 3.5 g/dL (3.5-5.2); ALKALINE PHOSPHATASE 45 IU/L (56-112); ASPARTATE AMNIOTRANSFERASE,AST 28 IU/L (5-25); BILIRUBIN TOTAL 0.3 mg/dL (0.1-1.3); MAGNESIUM 1.7 mg/dL (1.8-2.5)
[2023-03-08] MEDS ORDERED: Thiamine 200 MG/2 ML MDV IVPUSH ONE (10:27)
[2023-03-08] MEDS ORDERED: Sodium Chloride 0.9% 1,000 ML IV ONE (10:30)
[2023-03-08] MEDS ORDERED: Sodium Chloride 0.9% 1,000 ML IV SCH (10:30)
[2023-03-08 10:35] LABS: ETHANOL BLOOD MEDICAL 0.07 % (<0.03); TSH ULTRASENSITIVE 0.74 IU/mL (0.36-3.74)
[2023-03-08] MEDS ORDERED: Ondansetron 4 MG/2 ML SDV IVPUSH ONE (10:36)
[2023-03-08 11:54] VITALS: BP 111/75; PULSE 118
== END 2023-03-08 12:52 | disposition home or self-care (01) ==
LOC: FB.ED 09:42
DX: R07.81 Pleurodynia (principal); R09.1 Pleurisy; E83.42 Hypomagnesemia; R00.0 Tachycardia, unspecified; I10 Essential (primary) hypertension; Z79.899 Other long term (current) drug therapy
CPT/HCPCS: 36415; 71045; 80053; 80307; 83735; 83880; 84443; 84484; 85025; 93005; 96361; 96374; 96375; 99285; J2060; J2405; J3411; J7030

== ENCOUNTER 2024-02-19 17:13 | Emergency (ER) | payer MEDICAID ==
[2024-02-19] MEDS ORDERED: Sodium Chloride 0.9% 10 ML Syringe FLUSH PRN (17:27)
[2024-02-19] MEDS: Sodium Chloride 0.9% 1,000 ML IV SCH (17:44)
[2024-02-19] MEDS: Ketorolac 30 MG/ML SDV IVPUSH ONE (17:45)
[2024-02-19] MEDS: methylPREDNISolone Sodium Succinate 125 MG/2 ML SDV IVPUSH ONE (17:46)
[2024-02-19 17:47] LABS: BASOPHILS ABSOLUTE AUTO 0.1 x10-3/uL (0.0-0.3); BASOPHILS PERCENT AUTO 0.6 % (0.3-3.8); EOSINOPHILS ABSOLUTE AUTO 0.7 x10-3/uL (0.0-0.6); EOSINOPHILS PERCENT AUTO 7.7 % (0.1-6.8); HEMATOCRIT 44.3 % (38.3-50.1); HEMOGLOBIN 14.9 g/dL (12.9-17.7); LYMPHOCYTES ABSOLUTE AUTO 0.9 x10-3/uL (0.5-4.5); LYMPHOCYTES PERCENT AUTO 9.3 % (15.8-45.3); MEAN CORPUSCULAR HEMOGLOBIN 32.4 pg (27.0-33.3); MEAN CORPUSCULAR HGB CONC 33.6 g/dL (28.7-35.3); MEAN CORPUSCULAR VOLUME 96.4 fL (80.8-98.7); MEAN PLATELET VOLUME 7.5 fL (6.7-11.0); MONOCYTES PERCENT AUTO 10.1 % (5.5-15.2); NEUTROPHILS PERCENT AUTO 72.3 % (40.3-71.8); PLATELET COUNT,PLT 329 x10(3)uL (117-477); RED BLOOD CELL COUNT 4.59 x10(6)uL (3.90-5.90); RED CELL DISTRIBUTION WIDTH 14.8 % (12.4-15.0); WHITE BLOOD CELL COUNT,WBC 9.6 x10-3/uL (3.2-10.1)
[2024-02-19] MEDS: Thiamine 200 MG/2 ML MDV IVPUSH ONE (17:47)
[2024-02-19 17:49] LABS: BLOOD UREA NITROGEN,BUN 15 mg/dL (7-18); CALCIUM 8.9 mg/dL (8.6-10.2); CARBON DIOXIDE,CO2 27 mmol/L (21-32); CHLORIDE,CL 101 mmol/L (100-110); EST CRCL DRUG DOSING (CG) 94.76 mL/min; ESTIMATED GFR 88 mL/min (>60); GLUCOSE RANDOM 94 mg/dL (80-116); POTASSIUM,K 4.1 mmol/L (3.5-5.3); SODIUM,NA 138 mmol/L (135-145)
[2024-02-19 17:50] LABS: LIPASE 34 U/L (16-77)
[2024-02-19] MEDS: LORazepam 2 MG/ML SDV IVPUSH ONE (17:50)
[2024-02-19 17:52] LABS: ETHANOL BLOOD MEDICAL < 0.03 % (<0.03)
[2024-02-19 17:55] LABS: A/G RATIO 0.9; ALANINE AMINOTRANSFERASE,ALT 31 U/L (12-36); ALBUMIN 3.6 g/dL (3.5-5.2); ALKALINE PHOSPHATASE 55 IU/L (56-112); ASPARTATE AMNIOTRANSFERASE,AST 22 IU/L (5-25); BILIRUBIN TOTAL 0.5 mg/dL (0.1-1.3); CREATINE KINASE,CK 59 IU/L (60-160); MAGNESIUM 1.9 mg/dL (1.8-2.5); PHOSPHORUS 4.1 mg/dL (2.6-4.6); PROTEIN TOTAL,TP 7.5 g/dL (6.0-8.0)
[2024-02-19 18:24] VITALS: BP 150/109; PULSE 26
[2024-02-19] MEDS ORDERED: Iopamidol 755 Mg/ML 100 ML Bottle IV ONE (18:59)
== END 2024-02-19 19:15 | disposition home or self-care (01) ==
LOC: FB.ED 17:13
DX: R09.1 Pleurisy (principal); F10.232 Alcohol dependence with withdrawal with perceptual disturbance; I10 Essential (primary) hypertension; E78.00 Pure hypercholesterolemia, unspecified; Z79.899 Other long term (current) drug therapy
CPT/HCPCS: 71045; 80053; 80307; 82550; 83690; 83735; 84100; 85025; 96374; 96375; 99285-25; J1885; J2060; J2919; J3411; J7030

== ENCOUNTER 2024-02-20 23:31 | Emergency (ER) | payer MEDICAID ==
[2024-02-20] MEDS ORDERED: predniSONE 20 MG Tab PO ONE (23:32)
[2024-02-20] MEDS: Ketorolac 30 MG/ML SDV IM ONE (23:53)
[2024-02-20] MEDS: hydrOXYzine HCl 50 MG/ML SDV IM ONE (23:53)
[2024-02-21 00:14] LABS: BLOOD UREA NITROGEN,BUN 25 mg/dL (7-18); BUN/CREATININE RATIO 19.2 (9-20); CALCIUM 8.3 mg/dL (8.6-10.2); CARBON DIOXIDE,CO2 24 mmol/L (21-32); CHLORIDE,CL 104 mmol/L (100-110); CREATININE 1.3 mg/dL (0.70-1.30); EST CRCL DRUG DOSING (CG) 72.89 mL/min; ESTIMATED GFR 64 mL/min (>60); GLUCOSE RANDOM 90 mg/dL (80-116); POTASSIUM,K 3.8 mmol/L (3.5-5.3); SODIUM,NA 141 mmol/L (135-145)
[2024-02-21 00:20] LABS: ALANINE AMINOTRANSFERASE,ALT 33 U/L (12-36); ALBUMIN 3.6 g/dL (3.5-5.2); ALKALINE PHOSPHATASE 55 IU/L (56-112); ASPARTATE AMNIOTRANSFERASE,AST 21 IU/L (5-25); BILIRUBIN TOTAL 0.2 mg/dL (0.1-1.3); PROTEIN TOTAL,TP 7.4 g/dL (6.0-8.0)
[2024-02-21 01:14] VITALS: BP 136/79; PULSE 95
== END 2024-02-21 01:14 | disposition home or self-care (01) ==
LOC: FB.ED 23:31
DX: R09.1 Pleurisy (principal); I10 Essential (primary) hypertension; E78.00 Pure hypercholesterolemia, unspecified; Z79.899 Other long term (current) drug therapy
CPT/HCPCS: 36415; 80053; 84484; 85379; 93005; 96372; 99285; J1885; J3410; J7512

== ENCOUNTER 2024-02-24 15:11 | Emergency (ER) | payer MEDICAID ==
[2024-02-24] MEDS ORDERED: Sodium Chloride 0.9% 10 ML Syringe FLUSH PRN (15:48)
[2024-02-24] MEDS ORDERED: Thiamine 200 MG/2 ML MDV IVPUSH ONE (15:50)
[2024-02-24 16:07] LABS: BASOPHILS PERCENT AUTO 0.6 % (0.3-3.8); EOSINOPHILS PERCENT AUTO 0.1 % (0.1-6.8); HEMATOCRIT 40.8 % (38.3-50.1); HEMOGLOBIN 13.8 g/dL (12.9-17.7); LYMPHOCYTES ABSOLUTE AUTO 0.9 x10-3/uL (0.5-4.5); LYMPHOCYTES PERCENT AUTO 10.4 % (15.8-45.3); MEAN CORPUSCULAR HEMOGLOBIN 32.4 pg (27.0-33.3); MEAN CORPUSCULAR HGB CONC 33.8 g/dL (28.7-35.3); MEAN CORPUSCULAR VOLUME 95.7 fL (80.8-98.7); MEAN PLATELET VOLUME 7.3 fL (6.7-11.0); MONOCYTES ABSOLUTE AUTO 1.2 x10-3/uL (0.0-1.2); MONOCYTES PERCENT AUTO 13.3 % (5.5-15.2); NEUTROPHILS ABSOLUTE AUTO 6.6 x10-3/uL (1.7-6.9); NEUTROPHILS PERCENT AUTO 75.6 % (40.3-71.8); PLATELET COUNT,PLT 353 x10(3)uL (117-477); RED BLOOD CELL COUNT 4.26 x10(6)uL (3.90-5.90); RED CELL DISTRIBUTION WIDTH 14.7 % (12.4-15.0); WHITE BLOOD CELL COUNT,WBC 8.7 x10-3/uL (3.2-10.1)
[2024-02-24] MEDS: Ondansetron 4 MG/2 ML SDV IVPUSH ONE (16:08)
[2024-02-24] MEDS: Thiamine 200 MG/2 ML MDV IVPUSH STA (16:12)
[2024-02-24] MEDS: LORazepam 2 MG/ML SDV IVPUSH ONE ×2 (16:16→19:45)
[2024-02-24] MEDS: Sodium Chloride 0.9% 1,000 ML IV SCH (16:18)
[2024-02-24 16:21] LABS: A/G RATIO 0.9; ALANINE AMINOTRANSFERASE,ALT 42 U/L (12-36); ALBUMIN 3.5 g/dL (3.5-5.2); ALKALINE PHOSPHATASE 59 IU/L (56-112); ASPARTATE AMNIOTRANSFERASE,AST 30 IU/L (5-25); BILIRUBIN TOTAL 0.7 mg/dL (0.1-1.3); BLOOD UREA NITROGEN,BUN 21 mg/dL (7-18); CALCIUM 8.4 mg/dL (8.6-10.2); CARBON DIOXIDE,CO2 30 mmol/L (21-32); CHLORIDE,CL 99 mmol/L (100-110); CREATINE KINASE,CK 54 IU/L (60-160); ESTIMATED GFR 88 mL/min (>60); GLUCOSE RANDOM 72 mg/dL (80-116); MAGNESIUM 1.5 mg/dL (1.8-2.5); PHOSPHORUS 3.8 mg/dL (2.6-4.6); PROTEIN TOTAL,TP 7.5 g/dL (6.0-8.0); SODIUM,NA 139 mmol/L (135-145)
[2024-02-24] MEDS: Thiamine 100 MG in Sodium Chloride 0.9% 50 ML IV ONE (16:35)
[2024-02-24] MEDS: Calcium Gluconate 10% 1 GM/10 ML SDV IVPUSH ONE (16:51)
[2024-02-24] MEDS: Magnesium Sulfate/Water Premix 2 GM in Premix Bag 1 BAG IV ONE (17:14)
[2024-02-24 20:01] LABS: CALCIUM 8.2 mg/dL (8.6-10.2)
[2024-02-24 20:03] LABS: AMPHETAMINES SCREEN, URINE NEGATIVE (NEGATIVE); BARBITURATE SCREEN,URINE NEGATIVE (NEGATIVE); BENZODIAZEPINES SCREEN,URINE NEGATIVE (NEGATIVE); METHADONE SCREEN, URINE NEGATIVE (NEGATIVE); METHAMPHETAMINE SCREEN, URINE NEGATIVE (NEGATIVE); OXYCODONE SCREEN,URINE NEGATIVE (NEGATIVE); THC SCREEN,URINE NEGATIVE (NEGATIVE)
[2024-02-24 20:04] LABS: BUPRENORPHINE SCREEN,URINE NEGATIVE (NEGATIVE)
[2024-02-24] MEDS: Ketorolac 30 MG/ML SDV IVPUSH ONE (20:37)
[2024-02-24] MEDS ORDERED: LORazepam 2 MG/ML SDV IVPUSH PRN (20:42)
[2024-02-25] MEDS: amLODIPine 5 MG Tab PO ONE (09:39)
[2024-02-25] MEDS: Ketorolac 30 MG/ML SDV IVPUSH ONE (09:40)
[2024-02-25 10:40] VITALS: BP 142/94; PULSE 105
[2024-02-25] MEDS: LORazepam 1 MG Tab PO ONE (14:03)
[2024-02-25] MEDS: LORazepam 1 MG Tab ONE (16:49)
[2024-02-27 10:53] LABS: CALCIUM IONIZED PH 7.4 1.18 mmol/L (1.09-1.30); CALCIUM,IONIZED SERUM 1.12 mmol/L (1.09-1.30)
== END 2024-02-25 16:05 | disposition other institution (70) ==
LOC: FB.ED 15:11
DX: K70.9 Alcoholic liver disease, unspecified (principal); F10.232 Alcohol dependence with withdrawal with perceptual disturbance; E78.00 Pure hypercholesterolemia, unspecified; I10 Essential (primary) hypertension; Z79.899 Other long term (current) drug therapy
CPT/HCPCS: 36415; 80053; 80307; 82310; 82330; 82550; 83690; 83735; 84100; 85025; 96361; 96365; 96366; 96375; 96376; 99284; 99285; A9270; J0612; J1885; J2060; J2405; J3411; J3475; J7030